=== PATIENT | female | born 1970 ===

== ENCOUNTER 2017-09-19 21:56 | Emergency (ER) | payer OTHER ==
[2017-09-19] MEDS ORDERED: Tmp-Smz 800 mg-160 mg DS Tab PO STA (22:23)
[2017-09-19] MEDS ORDERED: Tmp-Smz 800 mg-160 mg DS Tab ONE ×2 (22:37→22:39)
--- NOTE | 2017-09-19 22:57 | C.PDOC ---
History Of Present Illness 47 year old female presents to the ED for evaluation of swelling and tenderness around her right great toenail which developed over the past 3 days. Patient has been soaking the area in warm water. She states she poked the area with a pin and expressed some pus. She denies fever, chills, or trauma to the area. Time Seen by Provider: 09/19/17 22:04 Chief Complaint (Nursing): Lower Extremity Problem/Injury History Per: Patient History/Exam Limitations: no limitations Onset/Duration Of Symptoms: Days (3) Current Symptoms Are (Timing): Still Present Additional History Per: Patient - Ankle/Foot Description Of Injury: denies: Struck With Object Past Medical History Reviewed: Historical Data, Nursing Documentation, Vital Signs Vital Signs: Last Vital Signs Temp 98.1 F 09/20/17 00:15 Pulse 88 09/20/17 00:15 Resp 20 09/20/17 00:15 BP 132/68 09/20/17 00:15 Pulse Ox 99 09/20/17 00:15 - Medical History PMH: No Chronic Diseases Surgical History: No Surg Hx Family History: States: Unknown Family Hx - Social History Hx Alcohol Use: No Hx Substance Use: No Review Of Systems Constitutional: Negative for: Fever, Chills Skin: Positive for: Other (right great toenail swelling and tenderness ) Physical Exam - Physical Exam Appears: Non-toxic, No Acute Distress Skin: Normal Color, Warm, Dry Extremity: Normal ROM, Tenderness (mild to medial nail margin of right great toenail ), Capillary Refill (less than 2 seconds ), No Deformity, Swelling ( mild to medial nail margin of right great toenail ) Neurological/Psych: Oriented x3, Normal Speech, Normal Cognition, Normal Sensation Gait: Steady ED Course And Treatment O2 Sat by Pulse Oximetry: 97 (on RA ) Pulse Ox Interpretation: Normal Medical Decision Making Medical Decision Making: Bactrim PO and Keflex PO administered. Patient's wound has begun to drain. There is no need for I&D at this time. Will discharge with Rx for antibiotics and instruct to f/u with PMD within 1-2 days for further evaluation. Disposition - Disposition Referrals: [facility] [Outside] Lissett Torres DPM [Staff Provider] - Disposition: HOME/ ROUTINE Disposition Time: 22:54 Condition: GOOD Additional Instructions: Follow up with the medical doctor within 1-2 days. Return if worsened Prescriptions: Cephalexin [cephalexin] 500 mg PO BID #20 cap Sulfamethoxazole/Trimethoprim [Bactrim DS 800 mg-160 mg] 1 tab PO BID #14 tab Instructions: Paronychia (ED), Cellulitis (ED) Forms: [employer] (Brazilian) - Clinical Impression Clinical Impression: Paronychia - PA / [employer] / Resident Statement MD/DO has reviewed & agrees with the documentation as recorded. - Scribe Statement The provider has reviewed the documentation as recorded by the Scribe (Amparo Gaspar) All medical record entries made by the Scribe were at my direction and personally dictated by me. I have reviewed the chart and agree that the record accurately reflects my personal performance of the history, physical exam, medical decision making, and the department course for this patient. I have also personally directed, reviewed, and agree with the discharge instructions and disposition.
[2017-09-20 01:08] VITALS: BP 132/68; PULSE 88; RESP 20; TEMP 98.1
[2017-09-20 05:36] VITALS: O2SAT 97
== END 2017-09-20 00:15 | disposition home or self-care (01) ==
LOC: C.ER 21:56
DX: L03.031 Cellulitis of right toe (principal)